=== PATIENT | male | born 2000 | race African-American/Black ===

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

== ENCOUNTER 2021-07-06 18:29 | Emergency (ER) | payer MEDICAID, OTHER ==
[~2021-07-06] VITALS: Ht 185.4 cm; Wt 113.6 kg
[2021-07-06 19:24] LABS: COVID AG,FIA SOURCE NASOPHARYNGEAL
[2021-07-06] MEDS ORDERED: BENZONATATE 100 MG CAPSULE PO ONE (19:45)
[2021-07-06 20:35] VITALS: BP 130/70
== END 2021-07-06 20:47 | disposition home or self-care (01) ==
LOC: EMS 18:36
DX: J02.9 Acute pharyngitis, unspecified (principal); Z20.822 Contact with and (suspected) exposure to COVID-19
CPT/HCPCS: 71045; 87426; 99284; U0003

== ENCOUNTER 2022-03-26 13:12 | Emergency (ER) | payer MEDICAID ==
[~2022-03-26] VITALS: Ht 188 cm; Wt 127.5 kg
[2022-03-26 13:52] LABS: COVID AG,FIA SOURCE NASAL SWAB
[2022-03-26 14:27] VITALS: BP 131/84
== END 2022-03-26 14:45 | disposition home or self-care (01) ==
LOC: EMS 13:14
DX: U07.1 COVID-19 (principal); F12.90 Cannabis use, unspecified, uncomplicated; F17.290 Nicotine dependence, other tobacco product, uncomplicated
CPT/HCPCS: 99283; 87426; U0003; C9803

== ENCOUNTER 2022-04-04 19:57 | Emergency (ER) | payer MEDICAID ==
[~2022-04-04] VITALS: Ht 188 cm; Wt 115.9 kg
[2022-04-04 20:05] VITALS: BP 133/76
[2022-04-04 20:56] LABS: COVID AG,FIA SOURCE NASOPHARYNGEAL
== END 2022-04-04 21:27 | disposition home or self-care (01) ==
LOC: EMS 20:10
DX: Z20.822 Contact with and (suspected) exposure to COVID-19 (principal); F12.90 Cannabis use, unspecified, uncomplicated
CPT/HCPCS: 99283